=== PATIENT | female | born 2000 | race Caucasian/White ===

== ENCOUNTER 2021-03-18 17:11 | Emergency (ER) | payer OTHER, SELFPAY ==
[2021-03-18 17:23] VITALS: BP 126/83; PULSE 85; RESP 20; TEMP 37.3; O2SAT 99
--- NOTE | 2021-03-18 17:25 | ED.URI ---
HPI - URI/Sore Throat General Chief Complaint: Upper Respiratory Infection Stated Complaint: upper respiratory infection Time Seen by Provider: 03/18/21 17:38 Source: patient and RN notes reviewed Mode of arrival: ambulatory Limitations: no limitations History of Present Illness HPI Narrative: 21-year-old female presents concern for 1 week history of cough, chest congestion, sore throat, nasal drainage. Reports a history of asthma, typically does not need to use her albuterol inhaler, however lately has been using it daily. She denies fever, body aches, chills, sweats. She works at a hospital with the public. MD elicited complaint: cough and nasal congestion Related Data Allergies Allergy/AdvReac Type Severity Reaction Status Date / Time clarithromycin Allergy Mild Verified 05/26/18 09:44 Sulfa (Sulfonamide Allergy Mild Verified 05/26/18 09:44 Antibiotics) vancomycin Allergy Mild Verified 05/26/18 09:44 cefprozil Allergy Unknown Verified 05/26/18 09:44 Review of Systems Review of Systems: Narrative: CONSTITUTIONAL: Denies malaise, chills, sweats, or fever. EYES: Denies visual changes, redness, or discharge. ENT: Reports rhinorrhea, congestion, and sore throat. CARDIOVASCULAR: Denies chest pain, palpitations, or edema. RESPIRATORY: Reports cough. Denies dyspnea. GASTROINTESTINAL: Denies abdominal pain, nausea, vomiting, diarrhea SKIN: Denies rash or itching. MUSCULOSKELETAL: Denies myalgia. NEUROLOGIC: Denies headache. All systems reviewed & are unremarkable except as noted in HPI and below PMFSH Comments At time of signature, agree with nursing past medical, surgical, social and family history. There is no relevant family history pertinent to the presenting complaint Exam Narrative: Exam Narrative: GENERAL: Well-appearing, well-nourished, and in no acute distress. HEAD: Normocephalic EYES: PERRLA, conjunctivae clear ENT: Nares clear, turbinates edematous and erythematous, clear discharge. Mucous membranes moist. TM pearly mckeon with dull light reflex bilaterally; no tragal tenderness. Oropharynx not erythematous without lesions. Tonsils not enlarged and without exudate, no drooling, no hoarseness, no trismus, uvula midline. NECK: Supple. No lymphadenopathy CHEST: Clear to auscultation, breath sounds diminished in the right upper lobe. No wheezing, rhonchi, rales, or stridor. No respiratory distress, speaks in full sentences. HEART: Regular rate and rhythm. No murmur heard. SKIN: Warm, dry, no rash. NEURO: Alert and oriented x3. PSYCH: Normal mood and affect Course Course Emergency Course: Patient is aware of diagnosis, understands and agrees to treatment plan. Anticipatory guidance given. Patient agrees to follow-up as directed and is aware of reasons to seek care at the emergency department. Portions of this record may have been created with voice recognition software Vital Signs Vital signs: Vital Signs Temperature 99.2 F 03/18/21 17:23 Pulse Rate 85 03/18/21 17:23 Respiratory Rate 20 03/18/21 17:23 Blood Pressure 126/83 03/18/21 17:23 Pulse Oximetry 99 03/18/21 17:23 Temperature 99.2 F 03/18/21 17:23 Pulse Rate 85 03/18/21 17:23 Respiratory Rate 20 03/18/21 17:23 Blood Pressure 126/83 03/18/21 17:23 Pulse Oximetry 99 03/18/21 17:23 Reviewed. MDM - URI/Sore Throat MDM Narrative Medical decision making narrative: Differential diagnosis considered: Galvan virus, strep pharyngitis, allergic rhinitis, upper respiratory tract infection, sinusitis, rhinosinusitis, nasopharyngitis. viral pharyngitis, otitis media, otitis externa, pneumonia, bronchitis, viral cough syndrome, viral syndrome, and influenza. Exam findings show no acute concerns or changes; patient is non-toxic appearing and is in no distress. Patient is appropriate for outpatient treatment and follow-up. Lab Data Attestation: I reviewed the patient's lab results. Critical Care Time Critical Care Time Critical
== END 2021-03-18 18:03 | disposition home or self-care (01) ==
PROVIDERS: Emergency Provider Nurse Practitioner
DX: J06.9 Acute upper respiratory infection, unspecified (principal); J45.909 Unspecified asthma, uncomplicated
CPT/HCPCS: 87081; 87880; 99213; G0463

== ENCOUNTER 2021-07-06 10:02 | Emergency (ER) | payer OTHER, SELFPAY ==
--- NOTE | 2021-07-06 10:15 | ED.URI ---
HPI - URI/Sore Throat General Chief Complaint: Upper Respiratory Infection Stated Complaint: Sore Throat,Congestion Time Seen by Provider: 07/06/21 10:15 Source: patient and RN notes reviewed Mode of arrival: ambulatory Limitations: no limitations History of Present Illness HPI Narrative: 21-year-old female with history of asthma presents concern for 8-day history of sore throat, nasal congestion, sinus pressure and drainage. She reports she has not needed to use her albuterol inhaler any more often than usual. She denies fever, body aches, chills. Reports sweats reports she is taking Mucinex with no relief. She denies known sick contacts, has not been vaccinated for Covid. Denies shortness of breath. MD elicited complaint: sore throat and nasal congestion Related Data Home Medications Medication Instructions Recorded Confirmed clindamycin phosphate 1 applic TOPICAL DAILY 03/18/21 07/06/21 drospirenone-ethinyl estradiol 1 tablet PO DAILY 03/18/21 07/06/21 [BRENDA (28)] erenumab-aooe [Aimovig 1 mg SUBCUT WEEKLY 03/18/21 07/06/21 Autoinjector] gabapentin 100 mg PO BID 03/18/21 07/06/21 Allergies Allergy/AdvReac Type Severity Reaction Status Date / Time Sulfa (Sulfonamide Allergy Severe Anaphylaxis Verified 03/18/21 17:56 Antibiotics) cefprozil Allergy Mild Hives Verified 03/18/21 17:56 clarithromycin Allergy Mild Hives Verified 03/18/21 17:56 vancomycin Allergy Mild Hives Verified 03/18/21 17:56 Review of Systems Review of Systems: CONSTITUTIONAL: Denies malaise, chills, or fever. Reports sweats EYES: Denies visual changes, redness, or discharge. ENT: Reports rhinorrhea, congestion, sinus pain, otalgia and sore throat. CARDIOVASCULAR: Denies chest pain, palpitations, or edema. RESPIRATORY: Reports cough. Denies dyspnea. GASTROINTESTINAL: Denies abdominal pain, nausea, vomiting, diarrhea SKIN: Denies rash or itching. MUSCULOSKELETAL: Reports myalgia. NEUROLOGIC: Denies headache. All systems reviewed & are unremarkable except as noted in HPI and below PMFSH Social History Social History Gender identity (if verbalized by the patient): Female Comments At time of signature, agree with nursing past medical, surgical, social and family history. There is no relevant family history pertinent to the presenting complaint Exam Narrative: GENERAL: Well-appearing, well-nourished, and in no acute distress. HEAD: Normocephalic EYES: PERRLA, conjunctivae clear ENT: Nares clear, turbinates edematous and erythematous, sinus tenderness. Mucous membranes moist. TM pearly mckeon with dull light reflex bilaterally; no tragal tenderness. Oropharynx mildly erythematous without lesions. Tonsils not present, no drooling, no hoarseness, no trismus, uvula midline. NECK: Supple. No lymphadenopathy CHEST: Clear to auscultation, breath sounds equal. No wheezing, rhonchi, rales, or stridor. No respiratory distress, speaks in full sentences. HEART: Regular rate and rhythm. No murmur heard. SKIN: Warm, dry, no rash. NEURO: Alert and oriented x3. PSYCH: Normal mood and affect Course Course Emergency Course: Patient is aware of diagnosis, understands and agrees to treatment plan. Anticipatory guidance given. Patient agrees to follow-up as directed and is aware of reasons to seek care at the emergency department. Portions of this record may have been created with voice recognition software Vital Signs Vital signs: Reviewed. MDM - URI/Sore Throat MDM Narrative Medical decision making narrative: Differential diagnosis considered: Galvan virus, strep pharyngitis, allergic rhinitis, upper respiratory tract infection, sinusitis, rhinosinusitis, nasopharyngitis. viral pharyngitis, otitis media, otitis externa, pneumonia, bronchitis, viral cough syndrome, viral syndrome, and influenza. Exam findings show no acute concerns or changes; patient is non-toxic appearing and is in no distress. Patient is appropriate for outpatient treatment and follow-
[2021-07-06 10:23] VITALS: BP 135/81; PULSE 103; RESP 18; TEMP 37.3; O2SAT 100
== END 2021-07-06 10:32 | disposition home or self-care (01) ==
PROVIDERS: Emergency Provider Nurse Practitioner; PCP Nurse Practitioner Family
DX: J01.90 Acute sinusitis, unspecified (principal); J45.909 Unspecified asthma, uncomplicated
CPT/HCPCS: 99213; G0463

== ENCOUNTER 2021-08-23 12:25 | Emergency (ER) | payer OTHER, SELFPAY ==
[2021-08-23 12:39] VITALS: BP 128/82; PULSE 79; RESP 20; TEMP 36.5; O2SAT 100
--- NOTE | 2021-08-23 13:05 | ED.URI ---
HPI - URI/Sore Throat General Chief Complaint: Upper Respiratory Infection Stated Complaint: cough Time Seen by Provider: 08/23/21 13:00 Source: patient, family and RN notes reviewed Mode of arrival: ambulatory Limitations: no limitations History of Present Illness HPI Narrative: Rupali is a 21-year-old female patient who ambulated into the [facility]. Patient states she is been sick for 5 days with sinus congestion, nasal congestion and cough. Patient has been using Mucinex and an inhaler for treatment. Patient has pain to the chest with a cough. Patient states she had a negative Covid test on Tuesday MD elicited complaint: cough Related Data Home Medications Medication Instructions Recorded Confirmed gabapentin 100 mg PO BID 03/18/21 08/23/21 Allergies Allergy/AdvReac Type Severity Reaction Status Date / Time Sulfa (Sulfonamide Allergy Severe Anaphylaxis Verified 08/23/21 13:04 Antibiotics) cefprozil Allergy Mild Hives Verified 08/23/21 13:04 clarithromycin Allergy Mild Hives Verified 08/23/21 13:04 vancomycin Allergy Mild Hives Verified 08/23/21 13:04 Review of Systems Review of Systems: CONSTITUTIONAL: Denies body aches, fever, chills, or sweats. EYES: Denies visual changes, redness, or discharge. ENT: Denies rhinorrhea,+ congestion,denies sore throat, or otalgia. CARDIOVASCULAR: Denies chest pain, palpitations, or edema. RESPIRATORY: + cough denies dyspnea. GASTROINTESTINAL: Denies abdominal pain, nausea, vomiting, or diarrhea. GENITOURINARY: Denies dysuria or hematuria. SKIN: Denies rash, itching, or wounds. MUSCULOSKELETAL: Denies back pain, joint pain, or myalgia. NEUROLOGIC: Denies headache, numbness, tingling, or weakness. PSYCH: Denies depression or anxiety. All systems reviewed & are unremarkable except as noted in HPI and below PMFSH Social History Social History Gender identity (if verbalized by the patient): Female Comments At time of signature, I have reviewed and agree with nursing past medical, surgical, social and family history unless otherwise noted. Please see nursing chart for further information. There is no relevant family history pertinent to the presenting complaint Exam Narrative: GENERAL: Well-appearing, well-nourished, and in no acute distress. HEAD: Normocephalic, atraumatic. EYES: EOMI. No redness or drainage. Conjunctivae normal. ENT: Mucous membranes pink and moist. Nares clear. No rhinorrhea. TMs normal bilaterally. Posterior pharynx is erythemic with mild edema. No exudate is noted . Uvula midline. NECK: Normal AROM. Supple. No lymphadenopathy. CHEST: No respiratory distress. Clear to auscultation. MUSCULOSKELETAL: No bony tenderness. EXTREMITIES: Normal range of motion. No edema. SKIN: Warm, dry, no rash. Capillary refill normal. Normal skin turgor. NEURO: No focal deficits. Alert and oriented x3. Gait steady. PSYCH: Normal affect. No signs of depression or anxiety. Course Vital Signs Vital signs: Vital Signs Temperature 36.5 C 08/23/21 12:39 Pulse Rate 79 08/23/21 12:39 Respiratory Rate 20 08/23/21 12:39 Blood Pressure 128/82 08/23/21 12:39 Pulse Oximetry 100 08/23/21 12:39 Temperature 36.5 C 08/23/21 12:39 Pulse Rate 79 08/23/21 12:39 Respiratory Rate 20 08/23/21 12:39 Blood Pressure 128/82 08/23/21 12:39 Pulse Oximetry 100 08/23/21 12:39 Reviewed MDM - URI/Sore Throat MDM Narrative Medical decision making narrative: Patient has a history of asthma. She has been getting relief with her inhaler. Patient will be treated with albuterol and steroids. For an upper respiratory infection patient to follow-up with her primary care physician for continued symptoms in 5 to 7 days sooner for any worsening of symptoms. Patient to go the ER for severe shortness of breath or any other emergent symptoms Differential Diagnosis Differential diagnos
== END 2021-08-23 13:15 | disposition home or self-care (01) ==
PROVIDERS: Emergency Provider Nurse Practitioner Family; PCP Nurse Practitioner Family
DX: J06.9 Acute upper respiratory infection, unspecified (principal); J45.909 Unspecified asthma, uncomplicated
CPT/HCPCS: 99213; G0463

== ENCOUNTER 2022-03-17 10:55 | Emergency (ER) | payer OTHER, SELFPAY ==
--- NOTE | ~2022-03-17 | XR_ITS ---
EXAMINATION: XR clavicle LT INDICATION: Left clavicle pain TECHNIQUE: Two views of the left clavicle are obtained. COMPARISON: 08/12/2017 FINDINGS: Bone alignment is normal. There is no fracture. The soft tissues are unremarkable. IMPRESSION: 1. No acute osseous abnormality. Reviewed, dictated and finalized at location B.
[2022-03-17 11:04] VITALS: BP 138/90; PULSE 88; RESP 16; TEMP 37.3; O2SAT 99
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
== END 2022-03-17 13:10 | disposition home or self-care (01) ==
PROVIDERS: Emergency Provider Registered Nurse; PCP Nurse Practitioner Family
DX: S40.012A Contusion of left shoulder, initial encounter (principal); X58.XXXA Exposure to other specified factors, initial encounter; Y93.17 Activity, water skiing and wake boarding; J45.909 Unspecified asthma, uncomplicated; G62.9 Polyneuropathy, unspecified
CPT/HCPCS: 73000; 99213; G0463

== ENCOUNTER 2022-08-07 10:14 | Emergency (ER) | payer OTHER, SELFPAY ==
[2022-08-07 10:34] VITALS: BP 134/81; PULSE 101; RESP 20; TEMP 37; O2SAT 100
--- NOTE | 2022-08-07 10:46 | ED.URI ---
HPI - URI/Sore Throat General Chief Complaint: Upper Respiratory Infection Stated Complaint: cough, congestion Time Seen by Provider: 08/07/22 10:40 Source: patient Mode of arrival: ambulatory Limitations: no limitations History of Present Illness HPI Narrative: Thomas is a 22-year-old female patient presenting to clinic today with complaints of cough, congestion, sinus pressure, and a possible staph infection to the left side her face x1 week. Reports that she has had staph in the past and was given prescription for mupirocin however she is out of that prescription. She reports that she has some sinus pressure as well as a nonproductive cough with nasal congestion. She denies any fever chills. She also is requesting a refill on her albuterol inhaler she does have a history of asthma. MD elicited complaint: cough, rhinorrhea, nasal congestion and sinus pain Related Data Home Medications Medication Instructions Recorded Confirmed gabapentin 100 mg capsule 100 mg PO BID 03/18/21 03/17/22 norethindrone 1.5 mg-ethinyl 1 tablet PO DAILY 03/17/22 03/17/22 estradiol 30 mcg(21)/iron 75 mg(7) tablet (Blisovi Fe 1.5/30 (28)) Allergies Allergy/AdvReac Type Severity Reaction Status Date / Time Sulfa (Sulfonamide Allergy Severe Anaphylaxis Verified 08/07/22 10:54 Antibiotics) cefprozil Allergy Mild Hives Verified 08/07/22 10:54 clarithromycin Allergy Mild Hives Verified 08/07/22 10:54 vancomycin Allergy Mild Hives Verified 08/07/22 10:54 Review of Systems Review of Systems: Pertinent positives per HPI. Patient denies any fever, chills, rash, headache, visual changes, dizziness, shortness of breath, chest pain, palpitations, nausea, vomiting, diarrhea, constipation, abdominal pain, or any urinary issues. [facility] Past Medical History Medical History Acne Asthma Insomnia Neuropathy, leg bilateral Surgical History Surgical History Hx of tonsillectomy Social History Social History Gender identity (if verbalized by the patient): Female Comments At the time of my signature, I reviewed and agree with the nursing past medical, surgical, social, and family history. There is no relevant family history pertinent to the patient complaint. Exam Narrative: General: Well-developed, well nourished, in no apparent distress Head: Normocephalic, atraumatic Eyes: Pupils equally round and reactive to light bilaterally, EOM intact, sclera and conjunctive clear, no discharge, lids normal Ears: TMs intact and dull, ear canals clear, no drainage, grossly hearing normal. Nose: Nares patent, clear nasal discharge, moderate inflammation, maxillary sinus tenderness. Mouth: Oral pharynx without lesions or masses, good dentition, MMM. Tonsils surgically absent Neck: Supple, trachea midline, no enlargement of anterior or posterior cervical nodes, no thyroid masses or goiter palpable. Cardio: Regular rate and rhythm, s1 and s2 normal, no murmur appreciated. Resp: Clear to auscultation bilaterally, no rhonchi, rales, wheezing or rubs Skin: [place], warm, and dry, yellow crusting lesions to the left side of the cheek just near the mouth Course Course Emergency Course: Portions of this record may have been created with voice recognition software. Level of Care: Express Care Visit Vital Signs Vital signs: Vital Signs Temperature 37.0 C 08/07/22 10:34 Pulse Rate 101 H 08/07/22 10:34 Respiratory Rate 20 08/07/22 10:34 Blood Pressure 134/81 08/07/22 10:34 Pulse Oximetry 100 08/07/22 10:34 Temperature 37.0 C 08/07/22 10:34 Pulse Rate 101 H 08/07/22 10:34 Respiratory Rate 20 08/07/22 10:34 Blood Pressure 134/81 08/07/22 10:34 Pulse Oximetry 100 08/07/22 10:34 Vital signs reviewed MDM - URI/Sore Throat
== END 2022-08-07 10:56 | disposition home or self-care (01) ==
PROVIDERS: Emergency Provider Nurse Practitioner Family; PCP Nurse Practitioner Family
DX: J06.9 Acute upper respiratory infection, unspecified (principal); L08.9 Local infection of the skin and subcutaneous tissue, unspecified; B95.8 Unspecified staphylococcus as the cause of diseases classified elsewhere
CPT/HCPCS: 99213; G0463

== ENCOUNTER 2024-08-08 09:51 | Emergency (ER) | payer BC, SELFPAY ==
--- NOTE | ~2024-08-08 | XR_ITS ---
EXAMINATION: XR chest 2V DATE: 08/08/2024 10:20 INDICATION: Cough. TECHNIQUE: Frontal and lateral views of the chest were obtained. COMPARISON: Chest 2 views 08/12/2017 FINDINGS: There is no pneumonia, pleural effusion, or pneumothorax. The heart size is normal. IMPRESSION: 1. No acute cardiopulmonary disease. Reviewed, dictated and finalized at location A. TRICAL SYSTEM SPECIALIST
[2024-08-08 10:01] VITALS: BP 149/103; PULSE 93; RESP 16; TEMP 37; O2SAT 99
--- NOTE | 2024-08-08 10:02 | ED_ITS ---
HPI - URI/Sore Throat General Chief Complaint: Upper Respiratory Infection Stated Complaint: cough / congestion Time Seen by Provider: 08/08/24 10:04 Source: patient and RN notes reviewed Mode of arrival: ambulatory Limitations: no limitations History of Present Illness HPI Narrative: 24-year-old female presents with concern for 3 week history of nasal congestion, sinus pressure and pain, cough. She reports 10 days ago she was prescribed doxycycline and prednisone which she finished today. She reports she is is not have any improvement in symptoms. She reports her cough had been productive and now is not. She reports general malaise. Denies fever, body aches, chills, sweats. Reports occasional sore throat. She reports a 10 days ago she was tested for COVID, flu, strep that were all negative. She reports she has been on doxycycline 3 times since April, 2 times were for chlamydia, the last time was for a sinus infection MD elicited complaint: cough, nasal congestion and sinus pain Related Data Home Medications Medication Instructions Recorded Confirmed norethindrone 1.5 mg-ethinyl 1 tablet DAILY 08/08/24 08/08/24 estradiol 30 mcg(21)/iron 75 mg(7) tablet (Junel FE 1.5/ (28)) Allergies Allergy/AdvReac Type Severity Reaction Status Date / Time Sulfa (Sulfonamide Allergy Severe Anaphylaxis Verified 08/08/24 10:02 Antibiotics) cefprozil Allergy Mild Hives Verified 08/08/24 10:02 clarithromycin Allergy Mild Hives Verified 08/08/24 10:02 vancomycin Allergy Mild Hives Verified 08/08/24 10:02 azithromycin Allergy Hives Verified 08/08/24 10:02 Review of Systems Review of Systems: CONSTITUTIONAL: Denies malaise, chills, sweats, or fever. EYES: Denies visual changes, redness, or discharge. ENT: Reports rhinorrhea, congestion, sinus pain, otalgia, mild sore throat. CARDIOVASCULAR: Denies chest pain, palpitations, or edema. RESPIRATORY: Reports cough. Denies dyspnea. GASTROINTESTINAL: Denies abdominal pain, nausea, vomiting, diarrhea SKIN: Denies rash or itching. MUSCULOSKELETAL: Denies myalgia. NEUROLOGIC: Denies headache. All systems reviewed & are unremarkable except as noted in HPI and below PMFSH Past Medical History Medical History Acne Asthma Insomnia Neuropathy, leg bilateral Surgical History Surgical History Hx of tonsillectomy Social History Social History Gender identity (if verbalized by the patient): Female Comments At time of signature, agree with nursing past medical, surgical, social and family history. There is no relevant family history pertinent to the presenting complaint Exam Narrative: GENERAL: Well-appearing, well-nourished, and in no acute distress. HEAD: Normocephalic EYES: PERRLA, conjunctivae clear ENT: Nares clear, turbinates edematous and erythematous. Mucous membranes moist. TM pearly mckeon with dull light reflex bilaterally; no tragal tenderness. Oropharynx not erythematous without lesions. Tonsils not enlarged and without exudate, no drooling, no hoarseness, no trismus, uvula midline. NECK: Supple. No lymphadenopathy CHEST: Clear to auscultation, breath sounds equal. No wheezing, rhonchi, rales, or stridor. No respiratory distress, speaks in full sentences. HEART: Regular rate and rhythm. No murmur heard. SKIN: Warm, dry, no rash. NEURO: Alert and oriented x3. PSYCH: Normal mood and affect Course Course Emergency Course: Patient is aware of diagnosis, understands and agrees to treatment plan. Anticipatory guidance given. Patient agrees to follow-up as directed and is aware of reasons to seek care at the emergency department. Portions of this record may have been created with voice recognition software Level of Care: Express Care Visit Vital Signs Vital signs: Vital Signs Temperature 98.6 F 08/08/24 10:01 Pulse Rate 93 08/08/24 10:01 Respiratory Rate 16 08/08/24 10:01 Blood Pressure 149/103 H 08/08/24 10:01 Pulse Oximetry 99 08/08/24 10:01 Oxygen Delivery Room Air 08/08/24 10:01 Temperature 98.6 F 08/08/24 10:01 Pulse Rate 93 08/08/24 10:01 Respiratory Rate 16 08/08/24 10:01 Blood Pressure 149/103 H 08/08/24 10:01 Pulse Oximetry 99 08/08/24 10:01 Oxygen Delivery Room Air 08/08/24 10:01 Reviewed. MDM - URI/Sore Throat MDM Narrative Medical decision making narrative: Differential diagnosis considered: Galvan virus, strep pharyngitis, allergic rhinitis, upper respiratory tract infection, sinusitis, rhinosinusitis, nasopharyngitis. viral pharyngitis, otitis media, otitis externa, pneumonia, bronchitis, viral cough syndrome, viral syndrome, and influenza. Exam findings show no acute concerns or changes; patient is non-toxic appearing and is in no distress. Patient is appropriate for outpatient treatment and follow-up. Lab Data Attestation: I reviewed the patient's lab results. Critical Care Time Critical Care Time Critical Care Time: No Discharge Plan Discharge Clinical Impression: Sinusitis Patient Disposition: Home, Self-Care Condition: Stable Instructions: Sinusitis (ED) Additional Instructions: Your chest x-ray is normal Your mono test is negative Symptomatic treatment of a sinus infection aims to relieve symptoms. These treatments do not shorten the duration of illness. Nonprescription pain medications, such as acetaminophen (eg, Tylenol) or ibuprofen (eg, Motrin, Advil), are recommended for pain. Flushing the nose and sinuses with a saline solution several times per day has been proven to decrease pain associated with congestion and shorten the duration of symptoms. Nasal steroids (such as Flonase, 2 sprays in each nostril daily) can help to reduce swelling inside the nose, usually within two to three days. These drugs have few side effects and relieve symptoms in most people. Oral decongestants (pseudoephedrine and phenylephrine) may be helpful if you have associated symptoms of ear pain or fullness. Nasal decongestant sprays, including oxymetazoline (Afrin) and phenylephrine (Eder-Synephrine), can be used to temporarily treat congestion. However, these sprays should not be used for more than two to three days due to the risk of rebound congestion (when the nose becomes congested constantly unless the medication is used repeatedly), possible addiction, and long-term consequences of frequent use, including persistent nasal dryness and crusting, which is very difficult to treat once it has developed. Medications to thin secretions (such as guaifenesin) may help to clear mucus. Please follow-up with your primary care doctor in the next 1-2 days. If you cannot follow-up with your primary care doctor please go to the ED for any urgent issues. If you have any worsening of symptoms or any other concerns please go to the ED immediately. Prescriptions: New methylprednisolone [Medrol (Giuseppe)] 4 mg tablets,dose pack See Rx Instructions .ROUTE .COMPLEX Qty: 21 0RF Rx Instructions: orally per package directions No Action norethindrone-e.estradiol-iron [5/ (28)] 1.5 mg-30 mcg (21)/75 mg (7) tablet 1 tablet DAILY albuterol sulfate 90 mcg/actuation HFA aerosol inhaler 2 puff inhalation Q4-6H PRN (Reason: shortness of breath or wheezing) 30 Days Qty: 8.5 0RF Follow-up/Referrals: PHYSICIAN,BRANCH OPERATIONS MANAGER [Primary Care Provider] - Shan Bui MD [Physician] - Stand Alone Forms: Work/School Release IP Time of Disposition: 10:39
[2024-08-08 10:03] VITALS: BP 149/103; PULSE 93; RESP 16; TEMP 37; O2SAT 99
[2024-08-08 10:29] VITALS: BP 143/97
[2024-08-08 10:50] LABS: EDMONONEGPOS Negative (Negative)
== END 2024-08-08 10:44 | disposition home or self-care (01) ==
PROVIDERS: Emergency Provider Nurse Practitioner
DX: J32.9 Chronic sinusitis, unspecified (principal); J45.909 Unspecified asthma, uncomplicated; G62.9 Polyneuropathy, unspecified
CPT/HCPCS: 36416; 71046; 86308; 99213; G0463

== ENCOUNTER 2024-09-03 13:23 | Emergency (ER) | payer BC, SELFPAY ==
[2024-09-03 13:55] VITALS: BP 133/85; PULSE 78; RESP 16; TEMP 36.5; O2SAT 100
--- NOTE | 2024-09-03 14:30 | ED_ITS ---
HPI - URI/Sore Throat General Chief Complaint: Upper Respiratory Infection Stated Complaint: fever/sinus pressure Time Seen by Provider: 09/03/24 14:30 History of Present Illness HPI Narrative: 24-year-old female presented for complaint of nasal congestion and sinus pressure for almost 2 months. States today she had a fever and the nasal pressure is worse. Since onset she was seen and given a steroid. She was treated with doxycycline for chlamydia but states it was before she developed sinus symptoms. Patient denies shortness of breath, wheezing, nausea, vomiting, diarrhea. Related Data Home Medications ?Medication ?Instructions ?Recorded ?Confirmed ?Last Taken ?Type norethindrone 1.5 mg-ethinyl 1 tablet DAILY 08/08/24 08/08/24 Unknown History estradiol 30 mcg(21)/iron 75 mg(7) tablet (Junel FE .02/08 (28)) Allergies Allergy/AdvReac Type Severity Reaction Status Date / Time Sulfa (Sulfonamide Allergy Severe Anaphylaxis Verified 09/03/24 13:32 Antibiotics) azithromycin Allergy Mild Hives Verified 09/03/24 13:32 cefprozil Allergy Mild Hives Verified 09/03/24 13:32 clarithromycin Allergy Mild Hives Verified 09/03/24 13:32 vancomycin Allergy Mild Hives Verified 09/03/24 13:32 Review of Systems Review of Systems: per [facility] Past Medical History Medical History Acne Insomnia Neuropathy, leg bilateral Asthma Surgical History Surgical History Hx of tonsillectomy Social History Social History Gender identity (if verbalized by the patient): Female Exam Narrative: GENERAL: mildly Ill-appearing, no acute distress. EYES: conjunctivae clear ENT: Mucous membranes moist. Sinus pressure. TM pearly mckeon with normal light reflex bilaterally; no tragal tenderness. Oropharynx not erythematous without lesions. No drooling, no hoarseness, no trismus, uvula midline. No tripod positioning, hot potato voice, or soft palate swelling. NECK: Supple. No lymphadenopathy CHEST: Clear to auscultation, breath sounds equal. No respiratory distress, speaks in full sentences. HEART: Regular rate and rhythm. No murmur heard. SKIN: Warm, dry, no rash. NEURO: Alert and oriented x3. Course Course Emergency Course: Patient is aware of diagnosis, understands and agrees to treatment plan. Anticipatory guidance given. Patient agrees to follow-up as directed and is aware of reasons to seek care at the emergency department. Portions of this record may have been created with voice recognition software Level of Care: Express Care Visit Vital Signs Vital signs: Vital Signs Temperature 97.7 F 09/03/24 13:55 Pulse Rate 78 09/03/24 13:55 Respiratory Rate 16 09/03/24 13:55 Blood Pressure 133/85 09/03/24 13:55 Pulse Oximetry 100 09/03/24 13:55 Oxygen Delivery Room Air 09/03/24 13:55 Temperature 97.7 F 09/03/24 13:55 Pulse Rate 78 09/03/24 13:55 Respiratory Rate 16 09/03/24 13:55 Blood Pressure 133/85 09/03/24 13:55 Pulse Oximetry 100 09/03/24 13:55 Oxygen Delivery Room Air 09/03/24 13:55 MDM - URI/Sore Throat MDM Narrative Medical decision making narrative: strep result reviewed with pt. Advise supportive treatments. Patient is appropriate for outpatient treatment and follow-up. Differential Diagnosis Differential diagnosis: Likely upper respiratory infection, viral infection and pharyngitis Discharge Plan Discharge Clinical Impression: Sinusitis Patient Disposition: Home, Self-Care Condition: Stable Instructions: Antibiotic Form, Rhinosinusitis (ED) Additional Instructions: Take antibiotic as directed Recommend Flonase spray and Zyrtec (or Claritin/Mary) If you take Afrin, you can use if for 3 days maximum then discard over the counter Cough syrup may cause drowsiness; avoid driving or take it at night time. Tylenol 1000mg every 8 hours as needed for pain Rest, fluids, and increase humidity of the air at home. Follow up with your primary care provider in 1 week. Go to the ER for worsening symptoms or concerns. Patient Language: [place] Prescriptions: New amoxicillin-pot clavulanate 875-125 mg tablet 1 tablet PO Q12H 7 Days Qty: 14 0RF No Action norethindrone-e.estradiol-iron [Junel FE 1.5/30 (28)] 1.5 mg-30 mcg (21)/75 mg (7) tablet 1 tablet DAILY methylprednisolone [Medrol (Giuseppe)] 4 mg tablets,dose pack See Rx Instructions .ROUTE .COMPLEX Qty: 21 0RF Rx Instructions: orally per package directions albuterol sulfate 90 mcg/actuation HFA aerosol inhaler 2 puff inhalation Q4-6H PRN (Reason: shortness of breath or wheezing) 30 Days Qty: 8.5 0RF Follow-up/Referrals: PHYSICIAN,BUILDING ILLUMINATING ENGINEER [Primary Care Provider] -
[2024-09-03 14:31] LABS: EDCOVIDSCREEN Negative (Negative)
[2024-09-03 14:32] LABS: EDINFLUASCREEN Negative (Negative); EDINFLUBSCREEN Negative (Negative); EDSTREPNEGPOS1 Negative (Negative)
== END 2024-09-03 14:38 | disposition home or self-care (01) ==
PROVIDERS: Emergency Provider Nurse Practitioner Family
DX: J32.9 Chronic sinusitis, unspecified (principal); Z20.822 Contact with and (suspected) exposure to COVID-19
CPT/HCPCS: 87081; 87426; 87804; 87880; 99213; G0463